=== PATIENT | female | born 1990 | race African-American/Black ===

== ENCOUNTER 2023-09-29 13:48 | Emergency (ER) | payer SELFPAY ==
[2023-09-29 14:27] LABS: Bilirubin Neg (Negative); Blood, Urine 10 (Negative); Clarity Cloudy (Clear); Glucose, Urine (Dipstick) Normal (Negative); Ketone, Urine Negative (Negative); Leukocyte 500 (Negative); Nitrite Negative (Negative); Protein, Urine (Dipstick) 15 mg/dl (Neg-Trace); Urobilinogen Normal mg/dL (Less than 2)
[2023-09-29 14:28] LABS: Pregnancy Test - Urine (BHCG) Negative (Negative)
[2023-09-29 14:29] LABS: Pregu Control Background? CLEAR/WHITE (CLR/WHITE); Pregu Control Bar Appear? YES (CONTROL BAR)
[2023-09-29 14:30] LABS: #Basophils 0.05 10x3/uL (0.0-0.2); #Eosinphils 0.07 10x3/uL (0.0-0.5); #Monocytes 0.39 10x3/uL (0.0-1.1); #Neutrophils 3.26 10x3/uL (1.5-8.4); %Basophils 0.9 % (0.0-2.0); %Eosinophils 1.2 % (0.0-6.0); %Lymphocytes 35.1 % (18.0-47.0); %Monocytes 6.7 % (0.0-10.0); %Neutrophils 55.9 % (40.0-75.0); Hematocrit 39.2 % (34.9-44.5); Mean Corpuscular HGB CONC 33.2 g/dL (32.0-36.0); Mean Corpuscular Hemoglobin 25.6 pg (27.0-33.0); Mean Corpuscular Volume 77.2 fL (81.6-98.3); Mean Platelet Volume 9.9 fL (7.4-10.4); Platelet Count 375 10x3/uL (150-450); RBC Distribution Width 14.1 % (11.5-14.5); Red Blood Cell (RBC) Count 5.08 10x6/uL (3.90-5.03); White Blood Cell (WBC) Count 5.8 10x3/uL (3.5-10.5)
[2023-09-29 14:43] LABS: Bacteria/HPF 4+ HPF (None Seen); CAUTI Indications for Culture Pelvic or flank pain; RBC/HPF 0-3 HPF (0-3); WBC/HPF 21-50 HPF (0-3)
[2023-09-29 14:45] LABS: Urine Culture Reflex Yes Yes
[2023-09-29 14:50] LABS: ALT (SGPT) 13 U/L (8-55); AST (SGOT) 17 U/L (5-34); Albumin 3.5 g/dL (3.5-5.0); Alkaline Phosphatase 91 U/L (40-110); Anion Gap 12 mmol/L (10-20); BUN (Urea Nitrogen) 7 mg/dL (7.0-18.7); Bilirubin, Total 0.3 mg/dL (0.2-1.2); Calc. Creatinine Clearance 0 mL/min (70-130); Carbon Dioxide 24 mmol/L (22-29); Chloride 106 mmol/L (98-107); Estimated GFR 92; Glucose 94 mg/dL (70-105); Potassium 3.4 mmol/L (3.5-5.1); Protein, Total 7.5 g/dL (6.0-8.3); Sodium 139 mmol/L (136-145)
[2023-09-29] MEDS ORDERED: Acetaminophen 500 MG TAB ONE (15:33)
[2023-09-29 23:40] LABS: GC by PCR, Vaginal Swab Not Detected (NotDetected)
== END 2023-09-29 17:12 | disposition home or self-care (01) ==
LOC: CSHERS 13:48
DX: N76.0 Acute vaginitis (principal); A59.9 Trichomoniasis, unspecified
CPT/HCPCS: 80053; 81001; 81025; 85025; 87086; 87480; 87510; 87591; 87660; 99284

== ENCOUNTER 2024-03-20 09:06 | Emergency (ER) | payer SELFPAY ==
[2024-03-20] MEDS ORDERED: Lidocaine 1% PF 5 ML VIAL ONE (10:02)
[2024-03-20] MEDS ORDERED: cefTRIAXone (ROCEPHIN) 1 GM VIAL ONE (10:03)
[2024-03-20] MEDS ORDERED: Azithromycin 250 MG TAB ONE (10:03)
[2024-03-20 10:27] LABS: Bilirubin Neg (Negative); Blood, Urine Negative (Negative); Clarity Slightly Cloudy (Clear); Glucose, Urine (Dipstick) Normal (Negative); Ketone, Urine Negative (Negative); Leukocyte 25 (Negative); Nitrite Positive (Negative); Protein, Urine (Dipstick) 30 mg/dl (Neg-Trace); Specific Gravity, Urine 1.025 (1.005-1.030); Urobilinogen Normal mg/dL (Less than 2)
[2024-03-20 10:30] LABS: Pregnancy Test - Urine (BHCG) Negative (Negative); Pregu Control Background? CLEAR/WHITE (CLR/WHITE); Pregu Control Bar Appear? YES (CONTROL BAR); Specific Gravity 1.025 (1.002-1.036)
[2024-03-20 10:36] LABS: Bacteria/HPF 4+ HPF (None Seen); CAUTI Indications for Culture Pelvic or flank pain; Mucous/LPF 2+ LPF (<2+); RBC/HPF None Seen HPF (0-3); Urine Culture Reflex No No; WBC/HPF 0-3 HPF (0-3)
[2024-03-22 10:46] LABS: Chlamydia by PCR, Vaginal Swab Not Detected (NotDetected); GC by PCR, Vaginal Swab Not Detected (NotDetected)
== END 2024-03-20 10:45 | disposition home or self-care (01) ==
LOC: CSHERS 09:06
DX: N39.0 Urinary tract infection, site not specified (principal)
CPT/HCPCS: 81001; 81025; 87491; 87591; 96372; 99284; J0696

== ENCOUNTER 2024-12-06 19:17 | Emergency (ER) | payer OTHER | END 2024-12-06 22:29 | LOC: CSHERS 19:17 | DX: J06.9 Acute upper respiratory infection, unspecified (principal); B97.89 Other viral agents as the cause of diseases classified elsewhere; I10 Essential (primary) hypertension | CPT/HCPCS: 87428; 99283 ==

== ENCOUNTER 2025-01-23 11:28 | Emergency (ER) | payer OTHER, BC ==
[2025-01-23] MEDS ORDERED: Acetaminophen 500 MG TAB ONE (14:14)
== END 2025-01-23 14:28 | disposition home or self-care (01) ==
LOC: CSHERS 11:28
DX: J02.8 Acute pharyngitis due to other specified organisms (principal); B96.89 Other specified bacterial agents as the cause of diseases classified elsewhere; J32.9 Chronic sinusitis, unspecified
CPT/HCPCS: 87081; 87428; 87430; 96372; 99283; J2919